=== PATIENT | male | born 2000 | race Caucasian/White ===

== ENCOUNTER 2021-02-12 10:44 | Observation (INO) ==
[2021-02-12] MEDS ORDERED: ONDANSETRON INJ 2 MG/ML 2 ML VIAL IV STA (11:26)
[2021-02-12] MEDS ORDERED: SODIUM CHLORIDE 0.9% 1000ML 1,000 ML IV SCH (11:30)
--- NOTE | 2021-02-12 11:34 | Emergency Department Note ---
Impression & Plan Jaundice, Elevated liver enzymes, Weakness, Mononucleosis ED Provider Note NAME: SHELLIE DIAZEVAGE AGE: 20 SEX: M : 2000 ARRIVES VIA: Walk-In INFORMANT: [Patient] ED PROVIDER(S): [Amando Mack MD] CHIEF COMPLAINT: Illness HISTORY OF PRESENT ILLNESS: The patient is a 20-year-old male has been sick for just over a week. He has had right ear congestion, muscular neck pain, intermittent fever, extreme fatigue, nausea with some occasional vomiting. The patient states that he has noticed his urine has been dark in color for about 3 days and yesterday, he not iced he had yellow skin and eyes. Patient also developed a muffled voice in the last 24 hours. He describes a mild sore throat. There has been no cough, no shortness of breath. No diarrhea. He has never had mono and has had no recent mono exposures. He has no history of anything like this ever happening before. The patient has been using some Tylenol and Motrin but was very careful not to u se more than what was recommended on the bottle. REVIEW OF SYSTEMS: See HPI for pertinent positives and negatives. A total of ten systems were reviewed and were otherwise negative. PMHx/PSHx: See Below SOCIAL HISTORY: See Below. PHYSICAL EXAM: GENERAL: Patient is in no acute distress. HEENT: No acute trauma, normocephalic atraumatic, mucous membranes moist, mild nasal congestion. Both TMs are occluded by wax. There is some throat erythema with tonsillar swelling. NECK: No stridor, mild bilateral anterior cervical adenopathy, no meningismus, trachea is midline. LUNGS: Clear to auscultation bilaterally, no wheeze, no rhonchi, breath sounds equal. HEART: Without murmurs gallops or rubs, regular rate and rhythm. ABDOMEN: Soft, nontender, bowel sounds positive, no hernias, no peritonitis. EXTREMITIES: No cyanosis or edema, full range of motion of all the joints without pain or difficulty, no signs for acute trauma. NEUROLOGIC: Oriented x 3, no acute motor or sensory deficits, no focal weakness. SKIN: No rash, moderate jaundice, no diaphoresis. DIFFERENTIAL DIAGNOSIS: Infection, dehydration, metabolic abnormality, hypo/hyperglycemia, electrolyte disturbance, anemia, toxicologic issues, hepatitis, mononucleosis, liver or renal failure, as well as other pathologies. EMERGENCY DEPARTMENT COURSE/PROCEDURES: MEDICAL DECISION MAKING: There is a mild leukocytosis, this could be consistent with infection or the stress of his situation. There is no anemia. There is a normal platelet count. No coagulopathy. No kidney failure or significant electrolyte abnormality. Lactic acid level is not elevated making sepsis less likely. He does have significant liver enzyme elevations, bilirubin was 5. Total creatinine kinase was normal. Lipase was normal. The patient appeared to be in a euthyroid state. Hepatitis panel is pending. Dickey screen is positive. Chest film shows some cardiomegaly, no CHF. On exam, the patient was not toxic or febrile. He was jaundiced. The patient was given IV Zofran for nausea, he received IV saline for hydration. I think the patient has liver enzyme elevation and jaundice from his mononucleosis. I do think a hospital stay is warranted. I did speak with the patient and case management. The on-call hospitalist was consulted. Past Med/Surg History Medical History No significant medical problems Social History Smoking Status: Never smoker Feels Safe at Home: Yes Allergies Allergies Allergy/AdvReac Type Severity Reaction Status Date / Time acetaminophen AdvReac Mild red bumps Unverified 02/12/21 13:12 [From Excedrin Extra Strength] aspirin AdvReac Mild red bumps Unverified 02/12/21 13:12 [From Excedrin Extra Strength] caffeine AdvReac Mild red bumps Unverified 02/12/21 13:12 [From Excedrin Extra Strength] Home Meds Home Medications Medication Instructions Recorded Confirmed No Known Home Medications 02/12/21 02/12/21 Results & Data (ED) Vital Signs Vital Signs - 24 hr 02/12/21 10:52 Temperature 36.3 C L Temperature Source Temporal Artery Scan Pulse Rate 103 H Respiratory Rate 18 Respiratory Effort / Characteristics Non-Labored Respiratory Depth Normal Blood Pressure 143/78 H Blood Pressure Mean 99 Pulse Oximetry 97 Oxygen Delivery Method Room Air Sepsis Recent Fever Within 48 Hours No Sepsis New/Unexplained Change in Mental Status No Sepsis Action Taken by Nursing No Action Required Home Medications Current Medication List: was personally reviewed by me Laboratory Data Attestation: I reviewed the patient's lab results. Result diagrams: 02/12/21 12:02 02/12/21 12:02 Lab Results 02/12/21 02/12/21 02/12/21 Range/Units 12:02 12:02 12:02 WBC 11.98 H (4.8-10.8) K/uL RBC 4.90 (4.7-6.1) M/uL Hgb 15.0 (14.0-18.0) g/dL Hct 42.0 (42-52) % MCV 85.7 (80-100) fL MCH 30.6 (25-34) pg MCHC 35.7 (32-36) g/dL RDW Std Deviation 43.9 (36.4-46.3) fL RDW Coeff of Franky 14.2 (11.5-14.5) % Plt Count 175 (130-400) K/uL MPV 10.0 (7.4-10.4) fL Neutrophils % (Manual) 19.3 % Lymphocytes % (Manual) 14.0 % Reactive Lymphs % (Man) 62.3 % Monocytes % (Manual) 4.4 % Neutrophils # (Manual) 2.31 (1.4-6.5) K/uL Total Absolute Neuts 2.31 (1.4-6.5) K/uL Lymphocytes # (Manual) 1.68 (1.2-3.4) K/uL Reactive Lymphs # 7.46 K/uL Total Abs Lymphocytes 9.14 H (1.2-3.4) K/uL Monocytes # (Manual) 0.53 (0.11-0.59) K/uL PT 10.7 (9.0-12.0) Seconds INR 1.1 (0.9-1.1) APTT 31.0 (21.0-31.0) Seconds PTT Ratio 1.2 Sodium 135 L (136-145) mmol/L Potassium 3.4 L (3.5-5.1) mmol/L Chloride 102 (98-107) mmol/L Carbon Dioxide 25 (21-32) mmol/L Anion Gap 8.0 (3-11) BUN 8 (7-18) mg/dl Creatinine 0.92 (0.6-1.4) mg/dl Est Cr Clr Drug Dosing 173.0 ml/min Est GFR ( Amer) 136.4 ml/min Est GFR (Non-Af Amer) 117.6 ml/min BUN/Creatinine Ratio 8.9 L (10-20) Glucose 92 (70-99) mg/dl Lactate (0.4-2.0) mmol/L Calcium 9.3 (8.5-10.1) mg/dl Magnesium 2.0 (1.8-2.4) mg/dl Total Bilirubin 5.0 H (0.2-1) mg/dl AST 320 H (15-37) U/L ALT 712 H (12-78) U/L Alkaline Phosphatase 367 H (45-117) U/L Total Creatine Kinase 71 (39-308) U/L Total Protein 8.9 H (6.4-8.2) gm/dl Albumin 3.9 (3.4-5.0) gm/dl Globulin 5.0 H (2.5-4.0) gm/dl Albumin/Globulin Ratio 0.8 L (0.9-2) Lipase 174 (73-393) U/L TSH 1.410 (0.300-4.500) uIu/ml Hep Bs Antigen (Neg) Hepatitis C Antibody (Neg) Monoscreen (Negative) 02/12/21 02/12/21 02/12/21 Range/Units 12:02 12:02 12:02 WBC (4.8-10.8) K/uL RBC (4.7-6.1) M/uL Hgb (14.0-18.0) g/dL Hct (42-52) % MCV (80-100) fL MCH (25-34) pg MCHC (32-36) g/dL RDW Std Deviation (36.4-46.3) fL RDW Coeff of Franky (11.5-14.5) % Plt Count (130-400) K/uL MPV (7.4-10.4) fL Neutrophils % (Manual) % Lymphocytes % (Manual) % Reactive Lymphs % (Man) % Monocytes % (Manual) % Neutrophils # (Manual) (1.4-6.5) K/uL Total Absolute Neuts (1.4-6.5) K/uL Lymphocytes # (Manual) (1.2-3.4) K/uL Reactive Lymphs # K/uL Total Abs Lymphocytes (1.2-3.4) K/uL Monocytes # (Manual) (0.11-0.59) K/uL PT (9.0-12.0) Seconds INR (0.9-1.1) APTT (21.0-31.0) Seconds PTT Ratio Sodium (136-145) mmol/L Potassium (3.5-5.1) mmol/L Chloride (98-107) mmol/L Carbon Dioxide (21-32) mmol/L Anion Gap (3-11) BUN (7-18) mg/dl Creatinine (0.6-1.4) mg/dl Est Cr Clr Drug Dosing ml/min Est GFR ( Amer) ml/min Est GFR (Non-Af Amer) ml/min BUN/Creatinine Ratio (10-20) Glucose (70-99) mg/dl Lactate 1.0 (0.4-2.0) mmol/L Calcium (8.5-10.1) mg/dl Magnesium (1.8-2.4) mg/dl Total Bilirubin (0.2-1) mg/dl AST (15-37) U/L ALT (12-78) U/L Alkaline Phosphatase (45-117) U/L Total Creatine Kinase (39-308) U/L Total Protein (6.4-8.2) gm/dl Albumin (3.4-5.0) gm/dl Globulin (2.5-4.0) gm/dl Albumin/Globulin Ratio (0.9-2) Lipase (73-393) U/L TSH (0.300-4.500) uIu/ml Hep Bs Antigen Neg (Neg) Hepatitis C Antibody Neg (Neg) Monoscreen Positive A (Negative) Administered Medications Discontinued Medications Sodium Chloride (Nss 1000ml) 1,000 mls @ 999 mls/hr IV .Q1H1M WILLIS Stop: 02/12/21 12:30 Last Infusion: 02/12/21 13:22 Dose: 0 mls/hr Documented by: [id number] Admin: 02/12/21 12:15 Dose: 999 mls/hr Documented by: [id number] Ondansetron HCl (Ondansetron Inj 2 Mg/Ml 2 Ml Vial) 4 mg IV NOW STA Stop: 02/12/21 11:27 Last Admin: 02/12/21 12:15 Dose: 4 mg Documented by: [id number] Imaging Data Radiologist's Impression: Chest X-Ray 02/12/21 11:26 XR chest 1V portable CLINICAL HISTORY: weakness COMPARISON STUDY: No previous studies for comparison. FINDINGS: Lungs are mildly diminished. No pneumothorax or pleural effusion is noted. Cardiac size is accentuated on this AP study. There is no evidence for pulmonary edema or pneumonia. IMPRESSION: 1. No acute cardiopulmonary findings. 2. Low lung volumes. Possible cardiac silhouette, possible technical. ACT 112: Negative or not required by law. Electronically signed by: Kirill Roberto M.D. 02/12/2021 12:27 PM Discharge Plan Visit Data Chief Complaint: Illness Stated Complaint: R EAR INFXN,NECK PAIN,VOMITING,EYES YELLOW LAST NI ED Provider: Amando Mack Discharge Problem: Jaundice, Elevated liver enzymes, Weakness, Mononucleosis Patient Disposition: Admitted As Inpatient Condition: Fair Forms Stand Alone Forms: Maps InDeed Prescriptions Prescriptions: No Action No Known Home Medications RF: 0 Referrals Referrals: PCP,NO [Primary Care Provider] - Discharge Problem: Mononucleosis Qualifiers: Infectious mononucleosis etiology: unspecified organism Infectious mononucleosis complication: other complications Qualified Code(s): B27.99 - Infectious mononucleosis, unspecified with other complication
[2021-02-12 12:16] LABS: Mean Corpuscular Hemoglobin 30.6 pg (25-34); Mean Corpuscular Hgb Conc 35.7 g/dL (32-36); Mean Corpuscular Volume 85.7 fL (80-100); Platelet Count 175 K/uL (130-400); RDW Coefficient of Variation 14.2 % (11.5-14.5); RDW Standard Deviation 43.9 fL (36.4-46.3); White Blood Count 11.98 K/uL (4.8-10.8)
[2021-02-12 12:26] LABS: INR 1.1 (0.9-1.1); Partial Thromboplastin Ratio 1.2; Prothrombin Time 10.7 Seconds (9.0-12.0)
--- NOTE | 2021-02-12 12:28 | XRay Report ---
XR chest 1V portable CLINICAL HISTORY: weakness COMPARISON STUDY: No previous studies for comparison. FINDINGS: Lungs are mildly diminished. No pneumothorax or pleural effusion is noted. Cardiac size is accentuated on this AP study. There is no evidence for pulmonary edema or pneumonia. IMPRESSION: 1. No acute cardiopulmonary findings. 2. Low lung volumes. Possible cardiac silhouette, possible technical. ACT 112: Negative or not required by law. Electronically signed by: Kirill Roberto M.D. 02/12/2021 12:27 PM
[2021-02-12 12:42] LABS: Albumin Level 3.9 gm/dl (3.4-5.0); BUN Creatinine Ratio 8.9 (10-20); Calcium 9.3 mg/dl (8.5-10.1); Est GFR (African American) 136.4 ml/min; Est GFR (Non-African American) 117.6 ml/min; Potassium 3.4 mmol/L (3.5-5.1)
[2021-02-12 12:53] LABS: Albumin Globulin Ratio 0.8 (0.9-2); Thyroid Stimulating Hormone 1.41 uIu/ml (0.300-4.500); Total Protein 8.9 gm/dl (6.4-8.2)
[2021-02-12 13:00] LABS: ALC (manual) 9.14 K/uL (1.2-3.4); ANC (manual) 2.31 K/uL (1.4-6.5); Lymphocytes # (manual) 1.68 K/uL (1.2-3.4); Monocytes # (manual) 0.53 K/uL (0.11-0.59); Monocytes % (manual) 4.4 %; Neutrophils # (manual) 2.31 K/uL (1.4-6.5); Neutrophils % (manual) 19.3 %; Reactive Lymphocytes # (manual) 7.46 K/uL; Reactive Lymphocytes % (manual) 62.3 %
[2021-02-12 13:03] LABS: Hepatitis B Surf Ag Rflx Conf Neg (Neg)
[2021-02-12 13:32] LABS: Hepatitis C IgG 13Yrs+Old_Rflx Neg (Neg)
--- NOTE | 2021-02-12 14:41 | History & Physical Report ---
Date of Service February 12, 2021 Assessment & Plan (1) Mononucleosis: Monospot positive Constellation of symptoms, physical findings, and laboratory work also suggest infectious mononucleosis Will hydrate with normal saline, trial of diet Discussed imaging, patient is refusing CT scan but will accept ultrasound. Will check ultrasound the liver and spleen If patient improves and is able to take oral hydration and nutrition, suspect he will be able to be discharged later today or tomorrow History of Present Illness Chief Complaint: Jaundice Primary Care Provider: NO PCP This is a 20-year-old male with no past medical history who presents for complaint of jaundice. Patient is a decent historian. Patient started having symptoms approximate 1 week ago. This involved some neck pain, fatigue, and fever. He tells me his temp was around 102 at home. He is noticed some dark urine although he has had no dysuria or other urinary complaints. He denies abdominal pain. He has had some nausea and vomiting although he tells me this is resolved today. ER work-up revealed significant transaminitis, elevated bilirubin, and a leukocytosis reactive lymphocytes. Monospot was positive. Patient is being placed in observation for symptomatic treatment of infectious mononucleosis. Allergies Allergy/AdvReac Type Severity Reaction Status Date / Time acetaminophen AdvReac Mild red bumps Unverified 02/12/21 13:12 [From Excedrin Extra Strength] aspirin AdvReac Mild red bumps Unverified 02/12/21 13:12 [From Excedrin Extra Strength] caffeine AdvReac Mild red bumps Unverified 02/12/21 13:12 [From Excedrin Extra Strength] Home Medications Medication Instructions Recorded Confirmed Type No Known Home Medications 02/12/21 02/12/21 History Past Med/Surg History Medical History No significant medical problems Social History Smoking Status: Never smoker Feels Safe at Home: Yes Review of Systems Constitutional: + fever, + body aches, + fatigue and + weakness; no chills, no weight loss and no weight gain Eyes: as per Subjective / HPI Ear, Nose, Mouth, Throat: + ear pain Respiratory: no cough, no chest congestion, no dyspnea and no dyspnea on exertion Cardiovascular: no chest pain, no orthopnea, no palpitations, no lightheadedness and no edema Gastrointestinal: no abdominal pain, no nausea, no vomiting, no constipation and no diarrhea/loose stools Musculoskeletal: no back pain, no neck pain, no joint pain, no stiffness and no myalgia Integumentary: no rash Neurologic: no gait abnormality, no unsteadiness, no falls and no generalized weakness Physical Exam Constitutional: cooperative and comfortable; no acute distress Eyes: icteric ENMT: Some low-grade facial swelling. Posterior column cervical lymphadenopathy, tender to palpation bilaterally Neck: trachea midline, no thyromegaly Respiratory: normal respiratory effort Auscultation: lungs clear to auscultation bilaterally; no crackles, no rales, no rhonchi and no wheezes Cardiovascular: Rate/Rhythm: regular rate and regular rhythm Heart Sounds: normal S1 and normal S2; no murmur Gastrointestinal (Abdomen): Inspection/Auscultation: abdomen normal to inspection Percussion/Palpation: abdomen soft; abdomen nontender, no guarding, abdomen not rigid and no hepatosplenomegaly Skin: no rashes, warm and dry + jaundice Results & Data Results & Data ([facility]) Vital Signs (Past 12 Hours) Vital Signs Temp Pulse Pulse Resp BP BP Pulse Ox 02/12/21 14:21 84 20 114/72 94 02/12/21 10:52 36.3 C L 103 H 18 143/78 H 97 PG Care Time/CCT Total # of Minutes Spent Total Time Spent with Patient: Total time spent is greater than 50% in coordination of care (as documented) at patient's floor/unit and/or counseling patient: Coding Level of Care Code 05103 OBS Care - Level 3 Diagnoses Mononucleosis B27.99 Infectious mononucleosis complication: other complications Infectious mononucleosis etiology: unspecified organism (1) Mononucleosis Infectious mononucleosis complication: other complications Infectious mononucleosis etiology: unspecified organism Qualified Code(s): B27.99 - Infectious mononucleosis, unspecified with other complication
[2021-02-12] MEDS: SODIUM CHLORIDE 0.9% 1000ML 1,000 ML IV SCH (17:15)
[2021-02-12] MEDS: ONDANSETRON INJ 2 MG/ML 2 ML VIAL IV PRN (18:35)
[2021-02-12] MEDS: IBUPROFEN 600 MG TAB PO PRN (18:35)
--- NOTE | 2021-02-12 19:55 | Ultrasound Report ---
US abdomen limited HISTORY: 20 years-old Male hepatitis, r/o splenomegaly acute weakness. COMPARISON: Chest radiograph of same day TECHNIQUE: Multiple real-time sonographic images of the abdominal right upper quadrant were obtained assessing grayscale appearance and color flow FINDINGS: Echogenic appearance of the liver with poor through transmission. The liver appears mildly enlarged. Hepatopedal flow noted within the portal vein. The spleen is enlarged measuring 16 cm. The gallbladde r and common bile duct were not imaged on this limited study. No ascites. IMPRESSION: Hepatosplenomegaly with suggested hepatic steatosis. ACT 112: Negative or not required by law. The above report was generated using voice recognition software. It may contain grammatical, syntax o r spelling errors. Electronically signed by: Tyrese Rendon M.D. 02/12/2021 7:54 PM
[2021-02-12 20:03] LABS: Appearance Urine Clear (Clear); Bilirubin Urine 1+ (Negative); Blood Urine Negative (Negative); Color Urine Yellow; Glucose Urine UA Negative (Negative); Ketones Urine 1+ (Negative); Leukocyte Esterase Urine Negative (Negative); Nitrite Urine Negative (Negative); Protein Urine Negative (Negative); Urobilinogen Urine Positive (Negative)
[2021-02-13 04:11] LABS: Hepatitis A Antibody IgM NON-REACTIVE (NON-REACTIVE); Hepatitis B Core Antibody IgM NON-REACTIVE (NON-REACTIVE)
[2021-02-13] MEDS: SODIUM CHLORIDE 0.9% 1000ML 1,000 ML IV SCH (05:29)
[2021-02-13 06:40] LABS: Hematocrit (blood only) 40.1 % (42-52); Hemoglobin 13.7 g/dL (14.0-18.0); Mean Corpuscular Hemoglobin 30.2 pg (25-34); Mean Corpuscular Hgb Conc 34.2 g/dL (32-36); Mean Corpuscular Volume 88.5 fL (80-100); Mean Platelet Volume 9.8 fL (7.4-10.4); Platelet Count 158 K/uL (130-400); RDW Coefficient of Variation 14.7 % (11.5-14.5); Red Blood Count 4.53 M/uL (4.7-6.1); White Blood Count 9.92 K/uL (4.8-10.8)
[2021-02-13 07:24] LABS: Albumin Globulin Ratio 0.7 (0.9-2); Albumin Level 3.2 gm/dl (3.4-5.0); BUN Creatinine Ratio 8.9 (10-20); Bilirubin,Total 4.4 mg/dl (0.2-1); Calcium 8.7 mg/dl (8.5-10.1); Creatinine Clr Calc Pharmacy 180.2 ml/min; Est GFR (African American) 140.7 ml/min; Est GFR (Non-African American) 121.4 ml/min; Globulin 4.6 gm/dl (2.5-4.0); Potassium 4.1 mmol/L (3.5-5.1); Total Protein 7.8 gm/dl (6.4-8.2)
[2021-02-13 07:37] LABS: ALC (manual) 8.63 K/uL (1.2-3.4); ANC (manual) 1.03 K/uL (1.4-6.5); Lymphocytes # (manual) 0.61 K/uL (1.2-3.4); Lymphocytes % (manual) 6.1 %; Monocytes # (manual) 0.17 K/uL (0.11-0.59); Monocytes % (manual) 1.7 %; Myelocytes # (manual) 0.09 K/uL (0-0); Myelocytes % (manual) 0.9 %; Neutrophils # (manual) 1.03 K/uL (1.4-6.5); Neutrophils % (manual) 10.4 %; Reactive Lymphocytes # (manual) 8.03 K/uL; Reactive Lymphocytes % (manual) 80.9 %
[2021-02-13] MEDS: ONDANSETRON INJ 2 MG/ML 2 ML VIAL IV PRN (08:05)
[2021-02-13] MEDS: IBUPROFEN 600 MG TAB PO PRN (10:31)
--- NOTE | 2021-02-13 11:45 | Discharge Summary ---
Date of Service February 13, 2021 Admission HPI Per Admitting Provider This is a 20-year-old male with no past medical history who presents for complaint of jaundice. Patient is a decent historian. Patient started having symptoms approximate 1 week ago. This involved some neck pain, fatigue, and fever. He tells me his temp was around 102 at home. He is noticed some dark urine although he has had no dysuria or other urinary complaints. He denies abdominal pain. He has had some nausea and vomiting although he tells me this is resolved today. ER work-up revealed significant transaminitis, elevated bilirubin, and a leukocytosis reactive lymphocytes. Monospot was positive. Patient is being placed in observation for symptomatic treatment of infectious mononucleosis. Admission Exam Per Admitting Provider Constitutional: cooperative and comfortable; no acute distress Eyes: icteric ENMT: Some low-grade facial swelling. Posterior column cervical lymphadenopathy, tender to palpation bilaterally Neck: trachea midline, no thyromegaly Respiratory: normal respiratory effort Auscultation: lungs clear to auscultation bilaterally; no crackles, no rales, no rhonchi and no wheezes Cardiovascular: Rate/Rhythm: regular rate and regular rhythm Heart Sounds: normal S1 and normal S2; no murmur Gastrointestinal (Abdomen): Inspection/Auscultation: abdomen normal to inspection Percussion/Palpation: abdomen soft; abdomen nontender, no guarding, abdomen not rigid and no hepatosplenomegaly Skin: no rashes, warm and dry + jaundice Principal Diagnosis Mononucleosis Discharge Exam Constitutional WD/WN, vitals as above Eyes sclerae not anicteric Respiratory normal respiratory effort, lungs clear to auscultation Cardiovascular RRR, no murmur, no edema Gastrointestinal (Abdomen) Inspection/Auscultation: abdomen normal to inspection and normal bowel sounds Percussion/Palpation: abdomen soft and + hepatosplenomegaly; abdomen nontender, no guarding and abdomen not rigid Skin + jaundice Discharge Data Allergies Allergy/AdvReac Type Severity Reaction Status Date / Time No Known Allergies Allergy Verified 02/19/21 15:32 Consultations 02/12/21 13:56 ED Decision to Admit Stat Ordered Studies 02/12/21 16:54 US abdomen limited HISTORY: 20 years-old Male hepatitis, r/o splenomegaly acute weakness. COMPARISON: Chest radiograph of same day TECHNIQUE: Multiple real-time sonographic images of the abdominal right upper quadrant were obtained assessing grayscale appearance and color flow FINDINGS: Echogenic appearance of the liver with poor through transmission. The liver appears mildly enlarged. Hepatopedal flow noted within the portal vein. The spleen is enlarged measuring 16 cm. The gallbladder and common bile duct were not imaged on this limited study. No ascites. IMPRESSION: Hepatosplenomegaly with suggested hepatic steatosis. Hospital Course (1) Mononucleosis: Ernesto De Leon is a 20 year old male observed overnight due to jaundice, elevated liver enzymes and positive monospot. Liver function tests improved overnight with conservative management. US showed enlargement of his spleen and liver and recommended avoiding all abdominal contact activities for at least 4 weeks. Repeat LFTs ordered for 1 week and recommend he follows up with his PCP following this. Total Time Total Time Spent Total Time Spent (In Minutes): 35 Total Time Includes: Examination of the Patient, Discharge Planning and Medication Reconciliation Discharge Plan Discharge Items Patient Disposition: Home - Self-Care Reason For Visit: JAUNDICE, MONO Discharge Diagnosis: Mononucleosis Condition on Discharge: Fair Activity: Resume your previous activity Non-emergency contact: Primary Care Provider Call non-emergency contact if: you have any medication questions and your symptoms worsen Follow-up/Referrals: Goyo Cevallos, [Physician] - 02/17/21 5:00 pm (APPT WITH MARISABEL ROSADO) Diet: Regular Addtl Attending Provider Instructions: You were observed overnight due to elevated liver enzymes and positive monospot. Liver function tests improved overnight and you are now medically stable for discharge. Given spleen and liver enlargement recommend avoid all abdominal contact activities for at least 4 weeks. You can return to work tomorrow but avoid any abdominal contact jobs. Please follow up with a PCP in approximately 1-2 weeks with repeat liver functions tests. Kind regards, Dr London Rosenberg Pending Studies at Discharge: No Stand-Alone Forms: [employer], Smoking Cessation Medications and DC Order Prescriptions: No Action No Known Home Medications RF: 0 Discharge Orders: Discharge Order (Routine); Ordered 02/13/21 Ordered By: London Sadler/Other Patient Handouts: ED Mononucleosis Admission Data Admit Date/Time: 02/12/21 15:34 Attending Provider: London Rosenberg Admit Provider: Nizza,Chano A. Primary Care Provider: PCP,NO Other Providers: Chano Quigley Other Interventions: Discharge Summary Assessment (RN) Last Done: 02/13/21 11:02 Coding Level of Care Code D/C Day Management >30 mins Diagnoses Mononucleosis B27.99 Infectious mononucleosis complication: other complications Infectious mononucleosis etiology: unspecified organism
== END 2021-02-13 12:00 | disposition home or self-care (01) ==
LOC: ED 10:44 → SUATTDRO 15:34 → 3N 15:34 → INTOOBSV 15:34 → 3N 16:10